=== PATIENT | male | born 1955 | race Two or more races ===

== ENCOUNTER 2018-04-10 12:25 | Day surgery (SDC) | payer OTHER | END 2018-04-10 16:40 | disposition home or self-care (01) | LOC: AMB-ENDOS 12:25 | DX: K57.30 Diverticulosis of large intestine without perforation or abscess without bleeding (principal); K64.8 Other hemorrhoids; Z12.11 Encounter for screening for malignant neoplasm of colon ==

== ENCOUNTER 2021-02-19 15:00 | Outpatient (CLI) | payer OTHER | END 2021-02-19 17:39 | disposition home or self-care (01) | LOC: PPH VACUNA 15:00 | DX: Z23 Encounter for immunization (principal) ==

== ENCOUNTER 2022-11-25 07:42 | Outpatient (CLI) | payer OTHER | END 2022-11-25 07:48 | disposition home or self-care (01) | LOC: NUCLEAR 07:42 | PROVIDERS: ATTEND Internal Medicine Cardiovascular Disease | DX: I25.10 Atherosclerotic heart disease of native coronary artery without angina pectoris (principal) | CPT/HCPCS: 78452; 93017; A9500 ==

== ENCOUNTER 2024-07-04 22:31 | Emergency (ER) | payer OTHER ==
[~2024-07-04] VITALS: Ht 165.1 cm; Wt 72.6 kg
[2024-07-04] MEDS ORDERED: PROBIOTIC250 MG (22:44)
[2024-07-04] MEDS ORDERED: ATORVASTATIN CA40 MG (22:44)
[2024-07-04] MEDS ORDERED: METFORMIN HCL500 MG (22:44)
[2024-07-04] MEDS ORDERED: 0.9 % SODIUM CHLORIDE 1,000 ML IV ONE (23:30)
[2024-07-04] MEDS ORDERED: ACETAMINOPHEN 325 MG TABLET PO ONE ×2 (23:30→23:48)
[2024-07-05 00:26] LABS: HEMOGLOBIN 13.1 g/dL (13-16.00); MEAN CORPUSCULAR HEMOGLOBIN 28.6 pg (27.00-32.0); MEAN CORPUSCULAR HGB CONC 33.6 g/dl (32.0-36.0); PLATELET COUNT 229 K/uL (150-450); RED BLOOD COUNT 4.59 M/uL (4.00-6.00); RED CELL DISTRIBUTION WIDTH 13.6 % (11.5-14.5)
[2024-07-05 00:46] LABS: ALBUMIN 2.5 gm/dL (3.4-5.0); BILIRUBIN TOTAL 0.57 mg/dL (0.3-1.2); CALCIUM 8.7 mg/dL (8.5-10.1); CREATININE SERUM 1.15 mg/dL (0.70-1.30); GFR 63.43; GLOBULINA 4.4 G/DL (2.4-3.5); POTASSIUM 4.27 mEq/L (3.5-5.1); TOTAL PROTEIN 6.9 gm/dL (6.4-8.2)
== END 2024-07-05 02:02 | disposition home or self-care (01) ==
LOC: ER 22:33
PROVIDERS: General Practice
DX: J06.9 Acute upper respiratory infection, unspecified (principal); Z85.46 Personal history of malignant neoplasm of prostate; E11.9 Type 2 diabetes mellitus without complications; Z79.84 Long term (current) use of oral hypoglycemic drugs
CPT/HCPCS: 36415; 96365; 99282; J7030

== ENCOUNTER 2024-07-05 15:17 | Inpatient (IN) | payer OTHER ==
[~2024-07-05] VITALS: Ht 231.1 cm; Wt 81.6 kg
[~2024-07-05 15:17] MED LIST: ATORVASTATIN CA40 MG; METFORMIN HCL500 MG; PROBIOTIC250 MG
[2024-07-05 16:53] LABS: ABG PH 7.521 (7.35-7.45); ABG PO2 63.1 mmHg (80-100); ABG pCO2 32.9 mmHg (35-45); BICARBONATE 26.3 mmol/l (23-25); SaO2 94.5 %; Tco2 27.3 mmol/l
[2024-07-05 16:54] LABS: allen test SATISFACTORY; o2 21 %; puncture site BRADIAL LEFT
[2024-07-05 17:08] LABS: HEMATOCRIT 35.2 % (39.0-48.0); HEMOGLOBIN 11.9 g/dL (13-16.00); MEAN CELL VOLUME 84.2 fL (80.0-100.00); MEAN CORPUSCULAR HEMOGLOBIN 28.4 pg (27.00-32.0); MEAN CORPUSCULAR HGB CONC 33.7 g/dl (32.0-36.0); PLATELET COUNT 222 K/uL (150-450); RED BLOOD COUNT 4.18 M/uL (4.00-6.00); RED CELL DISTRIBUTION WIDTH 13.8 % (11.5-14.5)
[2024-07-05 17:32] LABS: INR 1.13; PROTHROMBIN TIME 12.2 SECONDS (9.0-11.5)
[2024-07-05 17:39] LABS: ALBUMIN 2.3 gm/dL (3.4-5.0); BILIRUBIN TOTAL 0.54 mg/dL (0.3-1.2); BILIRUBIN,CONJUGATED 0.29 mg/dL (0.0-0.2); BILIRUBIN,UNCONJUGATED 0.25 mg/dL (0.0-0.6); CALCIUM 7.7 mg/dL (8.5-10.1); CREATININE SERUM 0.9 mg/dL (0.70-1.30); GFR 84.17; GLOBULINA 3.2 G/DL (2.4-3.5); POTASSIUM 4.25 mEq/L (3.5-5.1); TOTAL PROTEIN 5.5 gm/dL (6.4-8.2)
[2024-07-05] MEDS ORDERED: levoFLOXacin IN DEXTROSE 5 % 5 MG/ML PIGGYBAG IV ONE (18:15)
[2024-07-05 18:39] LABS: URINE APPEARANCE Clear; URINE BILIRRUBIN Negative (NEGATIVE); URINE BLOOD Small; URINE COLOR Yellow; URINE GLUCOSE Negative (NEGATIVE); URINE KETONE Negative (NEGATIVE); URINE LEUKOCYTE Negative; URINE NITRATE Negative; URINE PROTEIN 30 (NEGATIVE)
[2024-07-05 18:41] LABS: URINE RBC 6.7 uL (0.0-20.8); URINE WBC 3.1 uL (0.0-23.2)
[2024-07-05 18:46] LABS: URINE BACTERIA 3.6 uL (0.0-1933)
[2024-07-05] MEDS ORDERED: VANCOMYCIN HCL 1,000 MG VIAL IV SCH (21:25)
[2024-07-05] MEDS ORDERED: CEFEPIME HCL 2,000 MG in 0.9 % SODIUM CHLORIDE 100 ML IV SCH (21:26)
[2024-07-05] MEDS ORDERED: ONDANSETRON HCL 4 MG in 0.9 % SODIUM CHLORIDE 50 ML IV PRN (21:30)
[2024-07-05] MEDS ORDERED: KETOROLAC TROMETHAMINE 15 MG VIAL IU ONE (21:30)
[2024-07-05] MEDS ORDERED: ACETAMINOPHEN 500 MG GEL..CAP PO PRN (21:30)
[2024-07-05] MEDS ORDERED: VANCOMYCIN HCL 1,000 MG VIAL ONE (22:05)
[2024-07-05] MEDS ORDERED: KETOROLAC TROMETHAMINE 60 MG VIAL IM ONE (22:05)
[2024-07-05] MEDS ORDERED: 0.9 % SODIUM CHLORIDE 1,000 ML IV SCH (23:15)
[2024-07-05] MEDS ORDERED: MORPHINE SULFATE 2 MG/ML CARTRIDGE IV ONE (23:30)
[2024-07-05] MEDS ORDERED: METHYLPREDNISOLONE SOD SUCC 125 MG VIAL IV ONE (23:30)
[2024-07-06] VITALS (8 sets, daily range): BP systolic 98–127; BP diastolic 61–86; O2SAT 93–96
[2024-07-06] MEDS ORDERED: METHYLPREDNISOLONE SOD SUCC 125 MG VIAL ONE (00:05)
[2024-07-06] MEDS ORDERED: CEFEPIME HCL 2,000 MG VIAL ONE (00:05)
[2024-07-06] MEDS ORDERED: GUAIFENESIN/DEXTROMETHORPHAN 10ML BLIST.PACK PO ONE (00:05)
[2024-07-06] MEDS ORDERED: KETOROLAC TROMETHAMINE 60 MG VIAL IM ONE (00:55)
[2024-07-06] MEDS ORDERED: IPRATROPIUM BROMIDE 0.5 MG/2.5 ML AMPUL.NEB IH SCH (01:00)
[2024-07-06] MEDS ORDERED: GUAIFEN/DEXTROMETHORPHAN/PE 10 ML BLIST.PACK PO SCH (01:00)
[2024-07-06] MEDS ORDERED: VANCOMYCIN HCL 1,000 MG VIAL ONE (08:00)
[2024-07-06] MEDS ORDERED: ATORVASTATIN CALCIUM 40 MG TABLET PO SCH (09:00)
[2024-07-06] MEDS ORDERED: ENOXAPARIN SODIUM 40 MG/0.4 ML SYRINGE SUBCUTANEO SCH (09:00)
[2024-07-06] MEDS ORDERED: FAMOTIDINE/PF 20 MG in 0.9 % SODIUM CHLORIDE 8 ML IV PUSH SCH (09:00)
[2024-07-06] MEDS ORDERED: CHLORHEXIDINE GLUCONATE 120 ML BOTTLE TOP ONE (09:30)
[2024-07-06 09:40] LABS: ALBUMIN 1.8 gm/dL (3.4-5.0); BILIRUBIN TOTAL 0.47 mg/dL (0.3-1.2); CREATININE SERUM 0.76 mg/dL (0.70-1.30); GFR 102.3; GLOBULINA 3.1 G/DL (2.4-3.5); POTASSIUM 4.46 mEq/L (3.5-5.1); TOTAL PROTEIN 4.9 gm/dL (6.4-8.2)
[2024-07-06] MEDS ORDERED: AZITHROMYCIN 500 MG VIAL IV ONE (14:34)
[2024-07-06] MEDS ORDERED: AZITHROMYCIN 500 MG VIAL IV NR (14:45)
[2024-07-06] MEDS ORDERED: LINEZOLID 600 MG TABLET PO SCH (17:00)
[2024-07-06] MEDS ORDERED: LACTOBACILLUS ACIDOPHILUS 1 CAP CAP PO SCH (21:00)
[2024-07-07] VITALS (9 sets, daily range): BP systolic 101–148; BP diastolic 55–89; O2SAT 90–100
[2024-07-07 07:56] LABS: HEMATOCRIT 32.9 % (39.0-48.0); HEMOGLOBIN 11.2 g/dL (13-16.00); MEAN CELL VOLUME 83.2 fL (80.0-100.00); MEAN CORPUSCULAR HEMOGLOBIN 28.4 pg (27.00-32.0); MEAN CORPUSCULAR HGB CONC 34.2 g/dl (32.0-36.0); PLATELET COUNT 259 K/uL (150-450); RED BLOOD COUNT 3.95 M/uL (4.00-6.00); RED CELL DISTRIBUTION WIDTH 13.8 % (11.5-14.5)
[2024-07-07 08:35] LABS: ALBUMIN 1.8 gm/dL (3.4-5.0); BILIRUBIN TOTAL 0.38 mg/dL (0.3-1.2); CALCIUM 8.1 mg/dL (8.5-10.1); CREATININE SERUM 0.84 mg/dL (0.70-1.30); GFR 91.14; GLOBULINA 3.1 G/DL (2.4-3.5); MAGNESIUM 2.6 mg/dL (1.8-2.4); PHOSPHOROUS 3.1 mg/dL (2.5-4.9); POTASSIUM 5.12 mEq/L (3.5-5.1); TOTAL PROTEIN 4.9 gm/dL (6.4-8.2)
[2024-07-07 08:39] LABS: C-REACTIVE PROTEIN 23.5 MG/DL (0.00-0.29)
[2024-07-07] MEDS ORDERED: IRON FUM,PS/FOLIC/BCOMP,C NO.9 1 CAP CAPSULE PO SCH (09:00)
[2024-07-07] MEDS ORDERED: CYANOCOBALAMIN (VITAMIN B-12) 1,000 MCG TABLET PO SCH (09:00)
[2024-07-07] MEDS ORDERED: MULTIVIT-MIN/IRON FUM/FOLIC AC 1 TAB TABLET PO SCH (09:00)
[2024-07-07] MEDS ORDERED: AMINO ACIDS 1 EACH TABLET PO SCH (09:00)
[2024-07-07] MEDS ORDERED: RINGERS SOLUTION,LACTATED 1,000 ML IV SCH (09:30)
[2024-07-07] MEDS ORDERED: AZITHROMYCIN 500 MG VIAL IV ONE (11:08)
[2024-07-07] MEDS ORDERED: SODIUM POLYSTYRENE SULFONATE 30G/8 TSP PO NR (11:15)
[2024-07-07] MEDS ORDERED: AZITHROMYCIN 500 MG VIAL IV SCH (12:00)
[2024-07-08] VITALS (8 sets, daily range): BP systolic 116–140; BP diastolic 65–88; O2SAT 94–98
[2024-07-08] MEDS ORDERED: AZITHROMYCIN 500 MG VIAL IV ONE (12:24)
[2024-07-08] MEDS ORDERED: FAMOtidine 20 MG TABLET PO SCH (21:00)
[2024-07-09] VITALS (9 sets, daily range): BP systolic 118–169; BP diastolic 69–97; O2SAT 90–96
[2024-07-09 06:49] LABS: HEMATOCRIT 31.7 % (39.0-48.0); HEMOGLOBIN 10.7 g/dL (13-16.00); MEAN CELL VOLUME 84.9 fL (80.0-100.00); MEAN CORPUSCULAR HEMOGLOBIN 28.6 pg (27.00-32.0); MEAN CORPUSCULAR HGB CONC 33.6 g/dl (32.0-36.0); PLATELET COUNT 318 K/uL (150-450); RED BLOOD COUNT 3.73 M/uL (4.00-6.00); RED CELL DISTRIBUTION WIDTH 14.1 % (11.5-14.5)
[2024-07-09 06:50] LABS: ALBUMIN 1.8 gm/dL (3.4-5.0); BILIRUBIN TOTAL 0.41 mg/dL (0.3-1.2); CALCIUM 7.9 mg/dL (8.5-10.1); CREATININE SERUM 0.78 mg/dL (0.70-1.30); GFR 99.28; GLOBULINA 2.7 G/DL (2.4-3.5); MAGNESIUM 2.2 mg/dL (1.8-2.4); PHOSPHOROUS 2.9 mg/dL (2.5-4.9); TOTAL PROTEIN 4.5 gm/dL (6.4-8.2)
[2024-07-09 07:07] LABS: POTASSIUM 5.98 mEq/L (3.5-5.1)
[2024-07-09] MEDS ORDERED: AZITHROMYCIN 500 MG VIAL IV ONE (08:01)
[2024-07-09] MEDS ORDERED: CEFEPIME HCL 2,000 MG VIAL ONE (08:02)
[2024-07-09] MEDS ORDERED: SODIUM POLYSTYRENE SULFONATE 30G/8 TSP PO STA (08:41)
[2024-07-09] MEDS ORDERED: SODIUM POLYSTYRENE SULFONATE 15 G/4 TSP TSP PO SCH (13:00)
[2024-07-09] MEDS ORDERED: AMLODIPINE BESYLATE 2.5 MG TABLET PO SCH (19:44)
[2024-07-10] VITALS (10 sets, daily range): BP systolic 122–148; BP diastolic 72–85; O2SAT 90–96
[2024-07-10 09:30] LABS: CALCIUM 8.2 mg/dL (8.5-10.1); CREATININE SERUM 0.73 mg/dL (0.70-1.30); GFR 107.17; POTASSIUM 4.37 mEq/L (3.5-5.1)
[2024-07-10] MEDS ORDERED: AZITHROMYCIN 500 MG VIAL IV ONE (13:24)
[2024-07-10 15:27] LABS: ABG PH 7.485 (7.35-7.45); ABG PO2 75.7 mmHg (80-100); ABG pCO2 37.7 mmHg (35-45); BASE EXCESS 4.3 mmol/l; BICARBONATE 27.7 mmol/l (23-25); SaO2 96.3 %; Tco2 28.9 mmol/l
[2024-07-10 15:28] LABS: allen test SATISFACTORY; o2 21 %; puncture site RADIAL RIGHT
[2024-07-11] VITALS (9 sets, daily range): BP systolic 147–159; BP diastolic 70–86; O2SAT 92–99
[2024-07-11] MEDS ORDERED: NIFEDIPINE 30 MG TAB.SA.OSM PO SCH (11:02)
[2024-07-12] VITALS (8 sets, daily range): BP systolic 124–137; BP diastolic 62–77; O2SAT 96–100
[2024-07-12 06:33] LABS: HEMATOCRIT 32.8 % (39.0-48.0); MEAN CELL VOLUME 84.8 fL (80.0-100.00); MEAN CORPUSCULAR HEMOGLOBIN 28.4 pg (27.00-32.0); MEAN CORPUSCULAR HGB CONC 33.5 g/dl (32.0-36.0); PLATELET COUNT 343 K/uL (150-450); RED BLOOD COUNT 3.87 M/uL (4.00-6.00); RED CELL DISTRIBUTION WIDTH 13.8 % (11.5-14.5)
[2024-07-12 07:07] LABS: ALBUMIN 2.3 gm/dL (3.4-5.0); BILIRUBIN TOTAL 0.52 mg/dL (0.3-1.2); CREATININE SERUM 0.7 mg/dL (0.70-1.30); GFR 112.48; GLOBULINA 2.8 G/DL (2.4-3.5); MAGNESIUM 2.3 mg/dL (1.8-2.4); PHOSPHOROUS 2.5 mg/dL (2.5-4.9); POTASSIUM 4.49 mEq/L (3.5-5.1); TOTAL PROTEIN 5.1 gm/dL (6.4-8.2)
[2024-07-13] VITALS (9 sets, daily range): BP systolic 113–115; BP diastolic 68–75; O2SAT 95–98
[2024-07-14 01:19] VITALS: BP 132/80; O2SAT 96
[2024-07-14 01:34] VITALS: O2SAT 94
[2024-07-14 05:27] VITALS: O2SAT 94
[2024-07-14 10:10] VITALS: BP 132/75; O2SAT 98
[2024-07-14] MEDS ORDERED: INTEGRA PLUS C1 EACH PO (11:24)
[2024-07-14] MEDS ORDERED: LIPITOR40 M1 PO (11:24)
[2024-07-14] MEDS ORDERED: NIFEDIPINE ER30 M1 PO (11:25)
[2024-07-14] MEDS ORDERED: VITAMIN B-121000 MCG PO (11:25)
== END 2024-07-14 11:43 | disposition home or self-care (01) | DRG 871 ==
LOC: ER 15:19 → ICU-2 07-06 00:08 → ICU 07-06 02:44 → MEDI 07-07 18:17 → MEDJ 07-08 19:04
PROVIDERS: Emergency Medicine; Internal Medicine; Internal Medicine Infectious Disease; ADMIT Internal Medicine; ATTEND Internal Medicine
PROC: 4A12X4Z Monitoring of Cardiac Electrical Activity, External Approach (ICD-10-PCS; principal; 2024-07-07)
DX: A41.9 Sepsis, unspecified organism (principal); J18.9 Pneumonia, unspecified organism; E87.1 Hypo-osmolality and hyponatremia; D64.9 Anemia, unspecified; E87.5 Hyperkalemia; E78.5 Hyperlipidemia, unspecified; I10 Essential (primary) hypertension; H70.12 Chronic mastoiditis, left ear; K57.30 Diverticulosis of large intestine without perforation or abscess without bleeding

== ENCOUNTER 2024-08-30 15:26 | Outpatient (CLI) | payer OTHER ==
[~2024-08-30 15:26] MED LIST changes: +INTEGRA PLUS C1 EACH PO; +LIPITOR40 M1 PO; +NIFEDIPINE ER30 M1 PO; +VITAMIN B-121000 MCG PO
== END 2024-08-30 15:31 | disposition home or self-care (01) ==
LOC: RAD 15:26
PROVIDERS: ATTEND Internal Medicine
DX: J18.9 Pneumonia, unspecified organism (principal)

== ENCOUNTER 2025-01-10 05:29 | Day surgery (SDC) | payer OTHER ==
[~2025-01-10 05:29] MED LIST changes: +DUTASTERIDE-TA1 EACH PO
[2025-01-10] MEDS ORDERED: POVIDONE-IODINE 118 ML BOTT TOP ONE (08:30)
[2025-01-10] MEDS ORDERED: LIDOCAINE HCL 1%/EPINEPHRINE 20ML VIAL IJ ONE (08:30)
[2025-01-10] MEDS ORDERED: DEXAMETHASONE SODIUM PHOSPHATE 4 MG/ML VIAL IJ ONE (08:30)
[2025-01-10] MEDS ORDERED: EPINEPHRINE HCL/PF 1 MG/ML AMPUL IR ONE (08:30)
[2025-01-10] MEDS ORDERED: CIPROFLOXACIN HCL 0.175 MG/DR DROPS OTIC ONE (08:30)
[2025-01-10] MEDS ORDERED: CEFAZOLIN SODIUM 1,000 MG VIAL IV SCH (08:30)
[2025-01-10] MEDS ORDERED: CEPHALEXIN500 MG PO (09:54)
[2025-01-10] MEDS ORDERED: CIPROFLOXACIN2.5 ML OTIC (09:54)
[2025-01-10] MEDS ORDERED: MORPHINE SULFATE 4 MG/ML VIAL IV ONE ×2 (10:25→11:00)
[2025-01-10 15:33] VITALS: BP 130/75; O2SAT 100
== END 2025-01-10 12:05 | disposition home or self-care (01) ==
LOC: CIR.AMB 05:29
PROVIDERS: ATTEND Otolaryngology Otology & Neurotology
DX: H70.12 Chronic mastoiditis, left ear (principal); H72.02 Central perforation of tympanic membrane, left ear

== ENCOUNTER 2025-03-26 06:00 | Day surgery (SDC) | payer OTHER ==
[~2025-03-26 06:00] MED LIST changes: +CEPHALEXIN500 MG PO; +CIPROFLOXACIN2.5 ML OTIC
[2025-03-26] MEDS ORDERED: CEFAZOLIN SODIUM 1,000 MG VIAL ONE (07:11)
[2025-03-26] MEDS ORDERED: BUPIVACAINE HCL/MPF 0.5% 30ML VIAL ONE (07:11)
== END 2025-03-26 12:00 | disposition home or self-care (01) ==
LOC: CIR.AMB 06:00
PROVIDERS: ATTEND Surgery
DX: K40.90 Unilateral inguinal hernia, without obstruction or gangrene, not specified as recurrent (principal); Z91.040 Latex allergy status
CPT/HCPCS: 49650; C1781